=== PATIENT | female | born 2000 | race Caucasian/White ===

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

== ENCOUNTER → 2020-04-09 13:50 | Outpatient (CLI) | payer OTHER, MEDICAID, SELFPAY ==
[2020-04-09 15:01] LABS: Hematocrit 36.4 % (37-47); Hemoglobin 12.1 g/dL (12.0-15.0); Mean Corp Hgb Conc 33.2 g/dL (32-36); Mean Corpuscular Hgb 29.7 pg (27.0-32.0); Mean Corpuscular Volume 89.4 fL (81-99); Mean Platelet Vol. 11.2 fl (6.2-12.0); Platelet Count 218 K/mm3 (150-450); RBC Distribution Width CV 12.7 % (11.6-14.6); RBC Distribution Width SD 41.1 fl (35.1-43.9); Red Blood Count 4.07 M/mm3 (4.2-5.4); White Blood Count 11.3 K/mm3 (4.4-11.0)
[2020-04-09 15:22] LABS: Glucose Challenge Gest 1H 50g 131 mg/dL (70-140)
[2020-04-09 16:44] LABS: AST(SGOT) 21 U/L (15-37); Alanine Aminotransfer ALT/SGPT 20 U/L (13-56); Albumin, Serum 2.6 g/dL (3.2-5.0); Alkaline Phosphatase 102 U/L (45-117); Globulin 4.1 g/dL (2.2-4.2); Protein, Total 6.7 g/dL (6.4-8.2); Uric Acid 6.9 mg/dL (2.6-6.0)
[2020-04-09 18:21] LABS: Protein, Urine (Random) 100.9 mg/dL (<11.9); Protein:Creat Ratio 545 mg/g CRE (0-200)
== END ==
PROVIDERS: Visit Provider Obstetrics & Gynecology
DX: Z34.83 Encounter for supervision of other normal pregnancy, third trimester (principal)
CPT/HCPCS: 36415; 80076; 82570; 82950; 84156; 84550; 85027

== ENCOUNTER 2020-04-11 14:54 | Outpatient (CLI) | payer OTHER, MEDICAID, SELFPAY ==
[2020-04-11 15:14] LABS: 24 Hour Urine Protein 883.5 mg/24HR (<150 MG/24HR); 24HR. UA Prot. Total Volume 750 mL; Urine Protein (24 Hour) 117.8 mg/dL (<11.9)
[2020-04-11 15:17] LABS: Creat.Clear Total Volume 750 mL; Creatinine Clearance 90 ml/min (100-200); Creatinine Serum Creat 0.7 mg/dL (0.6-1.0); EST Glomerular Filtration Rate 109 mL/min (>60); Est Glom Filt Rate - Afr Amer 132 mL/min (>60)
[2020-04-11 15:18] LABS: Creatinine, Serum 0.72 mg/dL (0.55-1.02); EST Glomerular Filtration Rate 109 mL/min (>60); Est Glom Filt Rate - Afr Amer 132 mL/min (>60)
[2020-04-11 15:41] VITALS: BMI 22.8
[2020-04-11 16:56] LABS: Hemoglobin 11.5 g/dL (12.0-15.0); Mean Corp Hgb Conc 33.8 g/dL (32-36); Mean Corpuscular Hgb 29.5 pg (27.0-32.0); Mean Corpuscular Volume 87.2 fL (81-99); Mean Platelet Vol. 11.2 fl (6.2-12.0); Platelet Count 239 K/mm3 (150-450); RBC Distribution Width CV 12.5 % (11.6-14.6); RBC Distribution Width SD 39.5 fl (35.1-43.9); White Blood Count 10.8 K/mm3 (4.4-11.0)
[2020-04-11 17:04] LABS: International Normalized Ratio 0.9; Prothrombin Time (Protime)PT. 11.9 SECONDS (11.7-14.9)
[2020-04-11 17:11] LABS: AST(SGOT) 17 U/L (15-37); Alanine Aminotransfer ALT/SGPT 14 U/L (13-56); Creatinine, Serum 0.69 mg/dL (0.55-1.02); EST Glomerular Filtration Rate 115 mL/min (>60); Est Glom Filt Rate - Afr Amer 139 mL/min (>60); Estimated Creatinine Clearance 108.48 ml/min; Uric Acid 7.3 mg/dL (2.6-6.0)
[2020-04-11 17:20] LABS: ALB/GLOB Ratio 0.6 RATIO (0.9-2.4); AST(SGOT) 18 U/L (15-37); Alanine Aminotransfer ALT/SGPT 14 U/L (13-56); Albumin, Serum 2.5 g/dL (3.2-5.0); Alkaline Phosphatase 99 U/L (45-117); Anion Gap 8 (5-15); BUN 15 mg/dL (7-18); BUN/Creat Ratio 21.9 RATIO (10-20); Chloride 109 mmol/L (98-107); Creatinine, Serum 0.68 mg/dL (0.55-1.02); EST Glomerular Filtration Rate 117 mL/min (>60); Est Glom Filt Rate - Afr Amer 141 mL/min (>60); Estimated Creatinine Clearance 110.08 ml/min; Glucose 100 mg/dL (74-106); Potassium 4.2 mmol/L (3.5-5.1); Protein, Total 6.5 g/dL (6.4-8.2); Sodium Level 139 mmol/L (136-145)
--- NOTE | 2020-05-05 20:52 | OB.TRI.NOTE ---
History of Present Illness Date of Service: 04/11/20 Was patient seen by the physician?: No Reason For Visit: PRE E Date of Service: 04/11/20 Final ARUN: 06/29/20 Final ARUN Source: US <20 weeks Gestational age: 28 Weeks and 4 Days History of Present Illness: 28-week intrauterine presents from home with some elevated blood pressures and headaches which have been occurring on and off. Allergies No Known Allergies Allergy (Verified 04/17/20 14:42) Laboratory Studies: Laboratory Tests 04/11/20 04/11/20 04/11/20 Range/Units 16:45 16:45 16:45 WBC (4.4-11.0) K/mm3 RBC (4.2-5.4) M/mm3 Hgb (12.0-15.0) g/dL Hct (37-47) % MCV (81-99) fL MCH (27.0-32.0) pg MCHC (32-36) g/dL RDW Std Deviation (35.1-43.9) fl RDW Coeff of Toy (11.6-14.6) % Plt Count (150-450) K/mm3 MPV (6.2-12.0) fl PT 11.9 (11.7-14.9) SECONDS INR 0.9 APTT 27.0 (24.1-36.2) Seconds Sodium 139 (136-145) mmol/L Potassium 4.2 (3.5-5.1) mmol/L Chloride 109 H (98-107) mmol/L Carbon Dioxide 22.0 (21.0-32.0) mmol/L Anion Gap 8 (5-15) BUN 15 (7-18) mg/dL Creatinine 0.68 0.69 (0.6-1.0) mg/dL Estim Creat Clear Calc 110.08 108.48 ml/min Est GFR (MDRD) Af Amer 141 139 (>60) mL/min Est GFR (MDRD) Non-Af 117 115 (>60) mL/min BUN/Creatinine Ratio 21.9 H (10-20) RATIO Glucose 100 (74-106) mg/dL Uric Acid Cancelled 7.3 H (2.6-6.0) mg/dL Calcium 9.0 (8.5-10.1) mg/dL Total Bilirubin 0.30 (0.20-1.00) mg/dL AST 18 17 (15-37) U/L ALT 14 14 (13-56) U/L Alkaline Phosphatase 99 (45-117) U/L Total Protein 6.5 (6.4-8.2) g/dL Albumin 2.5 L (3.2-5.0) g/dL Globulin 4.0 (2.2-4.2) g/dL Albumin/Globulin Ratio 0.6 L (0.9-2.4) RATIO Urine Collection Time (24.0) HOURS Timed Urine Volume mL Urine Creatinine (NO RANGE EST.) mg/dL Creatinine Clearance (100-200) ml/min Ur Total Protein 24 Hr (<150 MG/24HR) mg/24HR Urine Total Protein (<11.9) mg/dL 04/11/20 04/11/20 04/11/20 Range/Units 16:45 14:50 14:50 WBC 10.8 (4.4-11.0) K/mm3 RBC 3.90 L (4.2-5.4) M/mm3 Hgb 11.5 L (12.0-15.0) g/dL Hct 34.0 L (37-47) % MCV 87.2 (81-99) fL MCH 29.5 (27.0-32.0) pg MCHC 33.8 (32-36) g/dL RDW Std Deviation 39.5 (35.1-43.9) fl RDW Coeff of Toy 12.5 (11.6-14.6) % Plt Count 239 (150-450) K/mm3 MPV 11.2 (6.2-12.0) fl PT (11.7-14.9) SECONDS INR APTT (24.1-36.2) Seconds Sodium (136-145) mmol/L Potassium (3.5-5.1) mmol/L Chloride (98-107) mmol/L Carbon Dioxide (21.0-32.0) mmol/L Anion Gap (5-15) BUN (7-18) mg/dL Creatinine 0.72 (0.6-1.0) mg/dL Estim Creat Clear Calc ml/min Est GFR (MDRD) Af Amer 132 (>60) mL/min Est GFR (MDRD) Non-Af 109 (>60) mL/min BUN/Creatinine Ratio (10-20) RATIO Glucose (74-106) mg/dL Uric Acid (2.6-6.0) mg/dL Calcium (8.5-10.1) mg/dL Total Bilirubin (0.20-1.00) mg/dL AST (15-37) U/L ALT (13-56) U/L Alkaline Phosphatase (45-117) U/L Total Protein (6.4-8.2) g/dL Albumin (3.2-5.0) g/dL Globulin (2.2-4.2) g/dL Albumin/Globulin Ratio (0.9-2.4) RATIO Urine Collection Time 24.0 (24.0) HOURS Timed Urine Volume 750 mL Urine Creatinine (NO RANGE EST.) mg/dL Creatinine Clearance (100-200) ml/min Ur Total Protein 24 Hr 883.5 H (<150 MG/24HR) mg/24HR Urine Total Protein 117.8 H (<11.9) mg/dL 04/11/20 Range/Units 14:50 WBC (4.4-11.0) K/mm3 RBC (4.2-5.4) M/mm3 Hgb (12.0-15.0) g/dL Hct (37-47) % MCV (81-99) fL MCH (27.0-32.0) pg MCHC (32-36) g/dL RDW Std Deviation (35.1-43.9) fl RDW Coeff of Toy (11.6-14.6) % Plt Count (150-450) K/mm3 MPV (6.2-12.0) fl PT (11.7-14.9) SECONDS INR APTT (24.1-36.2) Seconds Sodium (136-145) mmol/L Potassium (3.5-5.1) mmol/L Chloride (98-107) mmol/L Carbon Dioxide (21.0-32.0) mmol/L Anion Gap (5-15) BUN (7-18) mg/dL Creatinine 0.7 (0.6-1.0) mg/dL Estim Creat Clear Calc ml/min Est GFR (MDRD) Af Amer 132 (>60) mL/min Est GFR (MDRD) Non-Af 109 (>60) mL/min BUN/Creatinine Ratio (10-20) RATIO Glucose (74-106) mg/dL Uric Acid (2.6-6.0) mg/dL Calcium (8.5-10.1) mg/dL Total Bilirubin (0.20-1.00) mg/dL AST (15-37) U/L ALT (13-56) U/L Alkaline Phosphatase (45-117) U/L Total Protein (6.4-8.2) g/dL Albumin (3.2-5.0) g/dL Globulin (2.2-4.2) g/dL Albumin/Globulin Ratio (0.9-2.4) RATIO Urine Collection Time 24.0 (24.0) HOURS Timed Urine Volume 750 mL Urine Creatinine 125.0 (NO RANGE EST.) mg/dL Creatinine Clearance 90 L (100-200) ml/min Ur Total Protein 24 Hr (<150 MG/24HR) mg/24HR Urine Total Protein (<11.9) mg/dL NST - FHR Rate Baby A NST Reactive:: Appropriate for gestational age FHR Category:: Category I Impression/Plan 28-week intrauterine with PIH labs unchanged. Still proteinuria and elevated uric acid. Blood pressure stable on labor and delivery. Released to home with routine PIH instructions. To follow-up in the office in the next several days for blood pressure check. To call with any increasing symptoms of -induced hypertension. Reassuring nonstress test.
== END 2020-04-11 18:10 | disposition home or self-care (01) ==
LOC: WOBLAB 15:05 → OBT 15:39
PROVIDERS: Obstetrics & Gynecology; Referring Provider Obstetrics & Gynecology; Visit Provider Obstetrics & Gynecology
DX: O15.2 Eclampsia complicating the puerperium (principal)
CPT/HCPCS: 36415; 59025; 59050; 80053; 81050; 82565; 82575; 84156; 84450; 84460; 84550; 85027; 85610; 85730; 94760; 99218; G0378

== ENCOUNTER 2020-04-17 14:10 | Outpatient (CLI) | payer OTHER, MEDICAID, SELFPAY ==
[2020-04-17] VITALS (16 sets, daily range): BP systolic 127–148; BP diastolic 85–100; PULSE 62–93; TEMP 36.8; O2SAT 98; BMI 22.9
[2020-04-17 15:07] LABS: Hematocrit 33.8 % (37-47); Hemoglobin 11.5 g/dL (12.0-15.0); Mean Corpuscular Hgb 29.6 pg (27.0-32.0); Mean Corpuscular Volume 86.9 fL (81-99); Mean Platelet Vol. 11.3 fl (6.2-12.0); Platelet Count 278 K/mm3 (150-450); RBC Distribution Width CV 12.8 % (11.6-14.6); Red Blood Count 3.89 M/mm3 (4.2-5.4); White Blood Count 11.6 K/mm3 (4.4-11.0)
[2020-04-17 15:26] LABS: International Normalized Ratio 0.9; Prothrombin Time (Protime)PT. 11.7 SECONDS (11.7-14.9)
[2020-04-17 15:27] LABS: Partial Thromboplast Time 27.9 Seconds (24.1-36.2)
[2020-04-17 15:36] LABS: AST(SGOT) 17 U/L (15-37); Alanine Aminotransfer ALT/SGPT 12 U/L (13-56); Creatinine, Serum 0.67 mg/dL (0.55-1.02); EST Glomerular Filtration Rate 120 mL/min (>60); Est Glom Filt Rate - Afr Amer 145 mL/min (>60); Estimated Creatinine Clearance 111.72 ml/min; Uric Acid 7.4 mg/dL (2.6-6.0)
[2020-04-17 15:42] LABS: Protein, Urine (Random) 356.5 mg/dL (<11.9); Protein:Creat Ratio 2852 mg/g CRE (0-200)
[2020-04-17] MEDS: Lactated Ringers 1,000 ML 15 ML IV (17:25)
[2020-04-17] MEDS: Betamethasone/Betamethasone 30 MG/5 ML Vial 12 MG IM (17:27)
[2020-04-17] MEDS: Magnesium Sulfate 4gm/100mL 4 GM/100 ML IV.SOLN. IV (17:38)
[2020-04-17] MEDS: Magnesium Sulfate 4gm/100mL 2 GM/50 ML IV.SOLN. IV (18:03)
[2020-04-17] MEDS: Ondansetron 4 MG/2 ML Vial IV (18:12)
[2020-04-17] MEDS: Magnesium Sulfate 20 GM/500 ML BAG IV (18:16)
--- NOTE | 2020-04-17 20:46 | OB.TRI.NOTE ---
- Problem List (1) 29 weeks gestation of Status: Acute (2) Pre-eclampsia affecting , antepartum Status: Acute History of Present Illness Date of Service: 04/17/20 Was patient seen by the physician?: Yes Reason For Visit: R/O PREECLAMPSIA Date of Service: 04/17/20 Final ARUN: 06/29/20 Final ARUN Source: US <20 weeks Gestational age: 29 Weeks and 4 Days History of Present Illness: Mora was in providers office today with initial BP of 162/112. After laying on left side was 128/82. Immediately following once rolled over, 148/90. Sent to for serial BP and Pre-eclampsia panel. Hx on 04-11-20 of elevated pressures with urine protein 100.0, urine protein/creatinine ratio of 545, and uric acid of 7.3. Reports having a mild headache since 04-11-20, but at home BPs have been 120s-130s/80s. Allergies No Known Allergies Allergy (Verified 04/17/20 14:42) Laboratory Studies: Laboratory Tests 04/17/20 04/17/20 04/17/20 Range/Units 15:23 14:50 14:50 WBC (4.4-11.0) K/mm3 RBC (4.2-5.4) M/mm3 Hgb (12.0-15.0) g/dL Hct (37-47) % MCV (81-99) fL MCH (27.0-32.0) pg MCHC (32-36) g/dL RDW Std Deviation (35.1-43.9) fl RDW Coeff of Toy (11.6-14.6) % Plt Count (150-450) K/mm3 MPV (6.2-12.0) fl PT 11.7 (11.7-14.9) SECONDS INR 0.9 APTT 27.9 (24.1-36.2) Seconds Creatinine 0.67 (0.55-1.02) mg/dL Estim Creat Clear Calc 111.72 ml/min Est GFR (MDRD) Af Amer 145 (>60) mL/min Est GFR (MDRD) Non-Af 120 (>60) mL/min Uric Acid 7.4 H (2.6-6.0) mg/dL AST 17 (15-37) U/L ALT 12 L (13-56) U/L U Random Total Protein 356.5 H (<11.9) mg/dL Urine Creatinine 125.00 (NO RANGE EST.) mg/dL Protein/Creatinin Ratio 2852 H (0-200) mg/g CRE 04/17/20 Range/Units 14:50 WBC 11.6 H (4.4-11.0) K/mm3 RBC 3.89 L (4.2-5.4) M/mm3 Hgb 11.5 L (12.0-15.0) g/dL Hct 33.8 L (37-47) % MCV 86.9 (81-99) fL MCH 29.6 (27.0-32.0) pg MCHC 34.0 (32-36) g/dL RDW Std Deviation 40.0 (35.1-43.9) fl RDW Coeff of Toy 12.8 (11.6-14.6) % Plt Count 278 (150-450) K/mm3 MPV 11.3 (6.2-12.0) fl PT (11.7-14.9) SECONDS INR APTT (24.1-36.2) Seconds Creatinine (0.55-1.02) mg/dL Estim Creat Clear Calc ml/min Est GFR (MDRD) Af Amer (>60) mL/min Est GFR (MDRD) Non-Af (>60) mL/min Uric Acid (2.6-6.0) mg/dL AST (15-37) U/L ALT (13-56) U/L U Random Total Protein (<11.9) mg/dL Urine Creatinine (NO RANGE EST.) mg/dL Protein/Creatinin Ratio (0-200) mg/g CRE Review of Systems Constitutional: Denies: Chills, Fever, Weight Change HEENT: Reports: Head Aches. Denies: Sinus Congestion, Sinus Drainage Cardiovascular: Denies: Chest Pain, Palpitations Respiratory: Denies: Cough, Shortness of breath at rest, Sputum production Gastrointestinal: Denies: Abdominal Pain, Nausea, Vomiting Genitourinary: Denies: Dysuria Musculoskeletal: Denies: Joint Pain, Joint Tenderness Skin: Denies: Rash, Wounds Neurological: Denies: Numbness, Tingling, Focal weakness Psychiatric: Denies: Anxiety, Depression, Homicidal Ideations, Suicidal Ideations Hematologic/ Lymphatic: Denies: Easy Bruising, Easy Bleeding Physical Exam Vitals: Vital Signs Temp Pulse BP Pulse Ox 98.3 F 82 148/97 H 98 04/17/20 14:33 04/17/20 18:48 04/17/20 18:48 04/17/20 14:33 General: Alert, Oriented x3, No apparent distress HEENT: Atraumatic, Normocephalic. Negative for: Thyromegaly, Lymphadenopathy Cardiovascular: Regular rate, Regular Rhythm Lungs: Clear to auscultation Abdomen: Bowel Sounds Present, Gravid Neurological: Deep Tendon Reflexes 2+/4 and Symmetrical, Neuro grossly intact HVAC DESIGNER: Normal external genitalia. Negative for: Vulvar lesions Estimated gestational size: Appropriate for gestational size - <10th% Presentation: Cephalic NST - FHR Rate Baby A Baseline: 140 Variability:: Moderate Accelerations:: 15 x 15 Decelerations:: None NST Reactive:: Yes FHR Category:: Category I Uterine Activity:: quiet Impression/Plan A/P: at 29w gestation presenting with elevated blood pressure, headache, and worsening labs Urine protein 356.5, Urine Protein/Creatinine ratio 2852, Uric Acid 7.4 Stable platelets at 278 Pre-eclampsia Spoke with Dr. Florian with [facility] whom will accept patient IV Magnesium started per [facility] orders Transfer to [facility] in [facility] [place] [facility] in consultation with Dr. Aguirre
== END 2020-04-17 19:00 | disposition short-term general hospital (02) ==
PROVIDERS: Referring Provider Obstetrics & Gynecology; Visit Provider Obstetrics & Gynecology
DX: O14.93 Unspecified pre-eclampsia, third trimester (principal); Z3A.29 29 weeks gestation of pregnancy
CPT/HCPCS: 96361; 96374; J1240; 36415; 59025; 59050; 82565; 82570; 84156; 84450; 84460; 84550; 85027; 85610; 85730; 96372; 99218; J7120; G0378; J0702; J2405